=== PATIENT | male | born 1945 | race Caucasian/White ===

== ENCOUNTER 2016-10-05 12:33 | Inpatient (IN) | payer BC ==
--- NOTE | ~2016-10-05 | EGD ---
EGD REPORT [facility] [address] [place] [address] NAME: SYED DAUGHERTY : 41 STATUS : ADM IN PAT#: [id number] AGE: 71 ADM/REG DATE : 10/05/16 MR#: [id number] REPORT SERV DATE: 10/07/16 DICTATED BY: ANNIE RODARTE DATE: 10/07/16 REPORT STATUS : Draft TRANSCRIBED BY: [facility] DATE: 10/07/16 Endoscopy Center Patient Name: Syed Daugherty Date of : 1945 Attending MD: ANNIE RODARTE, Procedure Date No Time: 10/07/2016 Procedure: Upper GI endoscopy Indications: Acute post hemorrhagic anemia, Melena Referring MD: NAVEEN LARSEN, MIROSLAVA WELSH MD Medicines: Propofol per Anesthesia Complications: No immediate complications. Estimated blood loss: None. Procedure: Pre-Anesthesia Assessment: - ASA Grade Assessment: III - A patient with severe systemic disease. After obtaining informed consent, the endoscope was passed under direct vision. Throughout the procedure, the patient's blood pressure, pulse, and oxygen saturations were monitored continuously. The GIF [id number] was introduced through the mouth, and advanced to the second part of duodenum. The upper GI endoscopy was accomplished with ease. The patient tolerated the procedure well. Findings: The examined esophagus was normal. The Z-line was found 45 cm from the incisors. Scattered moderate inflammation characterized by erosions, erythema and linear erosions was found in the gastric body and in the gastric antrum. Biopsies were taken with a cold forceps for Helicobacter pylori testing. Estimated blood loss: none. Patchy moderately erythematous mucosa without active bleeding and with no stigmata of bleeding was found in the duodenal bulb. There was a small lipoma, 8 mm in diameter, in the second part of the duodenum. Impression: - Normal esophagus. - Z-line 45 cm from the incisors. - Gastritis. Biopsied. - Erythematous duodenopathy. - Duodenal lipoma. Recommendation: - [facility]. - Follow an antireflux regimen. - No aspirin, ibuprofen, naproxen, or other non-steroidal anti-inflammatory drugs. EGD REPORT [address] [place]. [address] NAME: SYED DAUGHERTY : [birth year] STATUS : ADM IN [facility]#: [id number] AGE: 71 ADM/REG DATE : 10/05/16 MR#: [id number] REPORT SERV DATE: 10/07/16 DICTATED BY: ANNIE RODARTE DATE: 10/07/16 REPORT STATUS : Draft TRANSCRIBED BY: [employer] DATE: 10/07/16 - Use Protonix (pantoprazole) 40 mg PO BID for 8 weeks. - Await pathology results. - Regular diet. - Return to GI clinic in 4 weeks. Procedure Code(s): --- Professional --- 37601, Esophagogastroduodenoscopy, flexible, transoral; with biopsy, single or multiple Diagnosis Code(s): --- Professional --- K29.70, Gastritis, unspecified, without bleeding K31.89, Other diseases of stomach and duodenum D17.5, Benign lipomatous neoplasm of intra-abdominal organs D62, Acute posthemorrhagic anemia K92.1, Melena CPT copyright 2013 [employer]. All rights reserved. The codes documented in this report are preliminary and upon fur dresser review may be revised to meet current compliance requirements. ANNIE RODARTE, 10/07/2016 5:18 PM This report has been signed electronically. Number of Addenda: 0 Note Initiated On: 10/07/2016 3:13 PM Scope Withdrawal Time 0 hours 0 minutes 0 seconds [address] [place] [id number]
--- NOTE | ~2016-10-05 | CN ---
Consultation Report [facility] [address] [facility] [place]. [address] NAME: EVGENY NAVARRO : 41 STATUS : ADM IN PAT#: [id number] AGE: 71 ADM/REG DATE : 10/05/16 MR#: [id number] REPORT SERV DATE: 10/05/16 DICTATED BY: JUDSON PENA DATE: 10/05/16 REPORT STATUS : Draft TRANSCRIBED BY: MODL DATE: 10/05/16 CONSULTATION NOTE DATE OF CONSULTATION: ATTENDING PHYSICIAN: Julio César Sparrow MD HISTORY OF PRESENT ILLNESS: This is a 71-year-old white male, I am seeing for Dr. Fabian Swartz, admitted with weakness, and found to have a history of atrial fibrillation, had been on Coumadin, INR was 8 on Friday, he held his Coumadin by history, and his INR today was 13, hemoglobin was 12.9, did have some dark stool, positive guaiac, history of hypertension, history of recent bronchitis URI, had been on antibiotics, he has had sinus and knee surgery. Denies abdominal pain, nausea, vomiting, has obstructive sleep apnea. History of increased alcohol and has had admissions for alcohol withdrawal in the past. His social history is positive for ETOH. Positive for former smoker. No nonsteroidals. States he has essential tremor. No past history of PUD. Some history of possible pulmonary emboli in the past. A CT last year when he was admitted for alcohol withdrawal showed fatty liver, gallstones, renal stones, and diverticular disease. White count 4700, and platelet count of 112,000. PHYSICAL EXAMINATION: GENERAL: Anxious, trembling, white male, alert. HEENT: Anicteric. NECK: Negative. CHEST: Few scattered rhonchi. HEART: Regular rhythm. ABDOMEN: Soft and nontender. Bowel sounds present. EXTREMITIES/NEUROLOGIC: Again, pertinent for recent tremor. ASSESSMENT: 1. Atrial fibrillation on Coumadin. INR at 8, now to 13. 2. Positive guaiac stools, some dark, hemoglobin of 12. 3. Recent upper respiratory infection and bronchitis on antibiotic. 4. Hypertension. 5. Obstructive sleep apnea. 6. Hepatitis A in the past. 7. Alcohol abuse with withdrawal in the past. Elevated LFTs on admission, slightly higher than baseline. 8. Gallstones. 9. Renal stones. 10.As mentioned fatty liver. 11.History of diverticulosis. SUGGESTION: Consultation Report [place] [address] [place]. [address] NAME: EVGENY NAVARRO : 41 STATUS : ADM IN PAT#: [id number] AGE: 71 ADM/REG DATE : 10/05/16 MR#: [id number] REPORT SERV DATE: 10/05/16 DICTATED BY: JUDSON PENA DATE: 10/05/16 REPORT STATUS : Draft TRANSCRIBED BY: MISSY DATE: 10/05/16 1. Correction of INR with fresh frozen plasma and vitamin K. 2. Begin Protonix. 3. Follow H and H. 4. Follow up LFTs. 5. May need EGD after correction of his ProTime. We will follow with you. FLORENCE/MISSY Judson Pena M.D. / [id number] CC: MD Colt Chen M.D. Henry Paik, M.D.
--- NOTE | ~2016-10-05 | DS ---
Discharge Summary [facility] [address] [facility] [place]. [address] NAME: EVGENY NAVARRO : 41 STATUS : DIS IN PAT#: [id number] AGE: 71 ADM/REG DATE : 10/05/16 MR#: [id number] REPORT SERV DATE: 10/09/16 DICTATED BY: MAURA BURNHAM DATE: 10/08/16 REPORT STATUS : Draft TRANSCRIBED BY: MODL DATE: 10/08/16 ADMISSION DATE: 10/05/2016 DISCHARGE DATE: 10/08/2016 HISTORY OF PRESENT ILLNESS: The patient is a 71-year-old male with a history of hypertension, atrial fibrillation, alcohol abuse, and essential tremors, who presented to the hospital due to concerns of his supratherapeutic INR and possible GI bleed. For further details, please refer to H and P dictated by Dr. Sparrow on 10/05/2016. HOSPITAL COURSE: I assumed care of the patient today, 10/08/2016. Briefly, the patient was instructed by peoplesoft programmer to present to the emergency room secondary to concerns of supratherapeutic INR. Upon presentation to the emergency room, the patient's history obtained was concerning for GI bleed. The patient's INR was also noted to be supratherapeutic at 13. The patient was admitted on the Hospitalist Service for further management. Supratherapeutic INR was corrected with FFP and vitamin K. Given concern given his history of dark stools, GI was consulted. He is status post EGD, which noted no significant findings. However, some gastritis was noted, which was biopsied. Also, there was a small lipoma 8 mm in diameter in the second part of the duodenum. Status post EGD, his hemoglobin has remained stable. The patient was also seen by Cardiology due to his atrial fibrillation, for which he was on warfarin for anticoagulation. Per Cardiology, the patient has been switched to Eliquis and warfarin at discharge. The patient has been evaluated by Cardiology today and is cleared for discharge from Cardiology standpoint. Given his hemodynamic stability and resolution of his presenting symptoms, the patient will be discharged today to follow up with primary care physician. Plan has been discussed with the patient, who voices understanding and is agreeable with this plan. DISCHARGE DIAGNOSES: 1. Upper gastrointestinal bleed. 2. Acute blood loss anemia. 3. Atrial fibrillation. 4. Hypertension. 5. ETOH abuse. 6. Essential tremors. 7. Obesity. 8. Hypertension. DISCHARGE EXAM: GENERAL: The patient was sitting in a chair. Appears stated age. The patient noted to have resting tremors. HEENT: Normocephalic, atraumatic. Extraocular motors intact. Moist oral mucosa. NECK: Trachea midline and symmetric. No JVD noted. No thyromegaly present. No lymphadenopathy appreciated. CHEST: Nontender to palpation. CARDIOVASCULAR: Irregularly irregular rate and rhythm. I did not appreciate any murmurs or gallops. LUNGS: Clear to auscultation bilaterally. ABDOMEN: Obese. Positive bowel sounds. Nontender. Nondistended. Discharge Summary [address] [place]. [address] NAME: EVGENY NAVARRO : 41 STATUS : DIS IN PAT#: [id number] AGE: 71 ADM/REG DATE : 10/05/16 MR#: [id number] REPORT SERV DATE: 10/09/16 DICTATED BY: MAURA BURNHAM DATE: 10/08/16 REPORT STATUS : Draft TRANSCRIBED BY: MISSY DATE: 10/08/16 EXTREMITIES: No cyanosis, no clubbing, no edema. NEURO: Alert and oriented x3. DISCHARGE MEDICATIONS: Medication reconciliation was performed by Cardiology. The patient will be discharged on vitamin B12 at 1000 mcg p.o. daily, diltiazem 360 mg p.o. daily, folic acid 1 mg p.o. daily, omeprazole 20 mg p.o. twice a day, artificial tears, lisinopril 20 mg p.o. daily, Valium 5 mg p.o. three times a day p.r.n. for anxiety, CONSULTANTS: On this admission, Dr. Pretty of GI and Dr. Galindo of Cardiology. PROCEDURES PERFORMED: The patient had an EGD performed while in-house. DISPOSITION: The patient will be discharged home to follow with Cardiology. ACTIVITY: As tolerated. DIET: Low-salt diet. Greater than 30 minutes was spent on chart review, coordinating discharge planning, medication reconciliation, and dictation of note. SONG Maura Burnham MD / [id number] CC: MD Colt Bello M.D.
--- NOTE | ~2016-10-05 | HP ---
History And Physical [place] [id number] [facility] [place]. [address] NAME: EVGENY NAVARRO : 41 STATUS : ADM IN [facility]#: [id number] AGE: 71 ADM/REG DATE : 10/05/16 MR#: [id number] REPORT SERV DATE: 10/05/16 DICTATED BY: SWETHA SPARROW DATE: 10/05/16 REPORT STATUS : Draft TRANSCRIBED BY: MODL DATE: 10/05/16 DATE OF ADMISSION: 10/05/2016 REASON FOR ADMISSION: Supratherapeutic INR concern for possible GI bleed. TABLE GAMES DEALER: Paolo Galindo M.D. CHIEF COMPLAINT: "I have not been feeling well, which he has been getting worse up until today when I tried to help my brother and I felt very weak and I could not get out of the car." HISTORY OF PRESENT ILLNESS: A 71-year-old white male with a history of atrial fibrillation, on Coumadin, followed by Dr. Galindo. Apparently, it is very difficult to control. He had an INR of 8 done on Friday. The patient checks his INR weekly and transmit that data to Dr. Galindo. He was told by Dr. Galindo's office to hold his Coumadin for the next couple of days and then recheck his INR again on Friday and reassess. He also has a known history of alcohol abuse in March 2016. He admitted to drinking vodka almost every 3 hours, although today he admits to only taking three wine glasses a day and with periodic vodka, maybe once a month. He says that he has been dealing with his essential tremors for long time. He has been on medications, which have not worked, but apparently alcohol has worked for his tremors. He does have a diagnosis of hepatitis C, diagnosed from hepatitis panel June 2016. He comes in today orthostatics complaining of weakness and not eating well and having some black diarrhea. He was found have an INR of 13 in emergency room, and he has completed 1 of 2 units ordered of FFP. He was also given a dose of vitamin K 5 mg IV. The patient is currently being interviewed by myself along with Dr. Pretty, who was at the bedside as well. The patient denies any history of having a scope, but does have had a laryngoscopy possibly by Dr. Newton, but patient is not entirely sure, who the ENT doctor is. Denies any vomiting, but also admits to some poor appetite. No hematemesis. In the ER, he was also found to have Hemoccult-positive stool. Hospice was asked to admit. REVIEW OF SYSTEMS: As per HPI. Otherwise, 10-point system reviewed and are negative. Of note, he was on recent Keflex for a possible upper respiratory infection. Otherwise, no other antibiotic use. PAST MEDICAL HISTORY: Atrial fibrillation on Coumadin, essential tremor, fatty liver disease, hepatitis A, hypertension, hyperlipidemia, morbid obesity, possible history of COPD, obstructive sleep apnea on CPAP. PAST SURGICAL HISTORY: He had left knee surgery and sinus surgery. SOCIAL HISTORY: He drinks alcohol. Denies any current smoking. He is . Has a son, who is living outside of the [facility]. He also has a brother. FAMILY HISTORY: Positive for tremors and liver disease. History And Physical [address] [address] NAME: EVGENY NAVARRO : 41 STATUS : ADM IN [facility]#: [id number] AGE: 71 ADM/REG DATE : 10/05/16 MR#: [id number] REPORT SERV DATE: 10/05/16 DICTATED BY: SWETHA SPARROW DATE: 10/05/16 REPORT STATUS : Draft TRANSCRIBED BY: MISSY DATE: 10/05/16 ALLERGIES: MIRTAZAPINE, UNKNOWN REACTION; PROPAFENONE CAUSES PASSING OUT; LEVAQUIN CAUSES DIZZINESS AND PASSING OUT; BRILINTA CAUSES NAUSEA, VOMITING. MEDICATIONS: Artificial tears; completed Keflex just yesterday; vitamin B12 of 1000 mcg daily; Valium 5 mg p.r.n. anxiety; diltiazem 360 mg daily; folic acid 1 mg daily; Zestril 20 mg daily; Prilosec 20 mg twice a day; Coumadin 2.5 mg Friday, Friday, Friday, and 5 mg Friday, Friday, , Friday. PHYSICAL EXAMINATION: VITAL SIGNS: Blood pressure lying down is 109/64, standing up is 84/37, pulse is 94 lying down, and then 121 sitting. Temperature is 98.2, respirations 20, sat 96% room air. GENERAL: He is in no acute distress. Alert and oriented x3. He is pleasant and cooperative clearly with bilateral hand tremors. HEENT: Normocephalic and atraumatic head. Extraocular muscles intact. Oropharynx is clear. Very poor dentition. CARDIAC: Irregularly irregular. No murmurs, rubs, or gallops. PULMONARY: Clear to auscultation bilaterally. ABDOMEN: Soft, nontender, nondistended. Positive bowel sounds. EXTREMITIES: Show no cyanosis. There is some ecchymosis throughout his skin. NEUROLOGIC: No focal deficits. PSYCHIATRIC: The patient is cooperative. Mood is appropriate. SKIN: Warm and dry. LABS: Show white blood cell count is normal, hemoglobin 12.4, platelet count of 112. BUN 12, creatinine is normal. Albumin 2.9, alkaline phosphatase is 140, ALT is 122, AST is 214, total bilirubin is 1.6. EKG shows AFib. IMPRESSION: 1. Supratherapeutic INR with a history of [id number] Coumadin likely secondary to liver disease along with alcohol abuse. 2. Orthostatic hypotension. 3. Hepatitis A. 4. Alcohol abuse. 5. Fatty liver disease with likely alcohol component. 6. Atrial fibrillation, on anticoagulation difficult to maintain. 7. History of nephrolithiasis and cholelithiasis. 8. Obstructive sleep apnea on CPAP. PLAN: Plan is to admit to the IMCU, transfused FFP and the patient already given vitamin K. We will repeat his coags later to see where he stands. He may need more FFP depending on his INR. We will initiate CIWA protocol for alcohol withdrawal for concern for possible alcohol withdrawal. Obtain stool studies. Administered IV fluids. Dr. Pretty has evaluated the patient in ER and will continue to follow with the potential scope on Friday depending on what his coags and hemoglobin do. History And Physical [address] [place]. [address] NAME: EVGENY NAVARRO : 41 STATUS : ADM IN [facility]#: [id number] AGE: 71 ADM/REG DATE : 10/05/16 MR#: [id number] REPORT SERV DATE: 10/05/16 DICTATED BY: SWETHA SPARROW DATE: 10/05/16 REPORT STATUS : Draft TRANSCRIBED BY: MISSY DATE: 10/05/16 ENRIQUE/MISSY Swetha Sparrow MD / [id number] CC: MD Colt Chen M.D. Alexander Stratienko, M.D.
[~2016-10-05 12:33] MED LIST: ASAB PO; C25 PO; C5 PO; CARD30 PO; CARDCD360 PO; COREG6 PO; FLURAZEPAM30 MG OR; FOLIC PO; KAOPECTATE262 MG/15 PO; LAN125 PO; LISINOPRIL40 MG; LISINOPRIL40 MG PO; MULTIPLE VIT PO; PLAVIX PO; PRILO PO; PRIN20 PO; REFRESH OPH; URO-MAG140 MG PO; V5 PO; VITAMIN B-121000 MC1 SL; WARFARIN PO; WAX OT
[2016-10-05 13:04] LABS: BASOPHILS 0 %; EOSINOPHILS 0.9 %; EOSINOPHILS ABSOLUTE 0.04 10/3/uL (0.0-0.53); ER CBC TAT 0 Hrs 08 Mins; HEMATOCRIT 37.2 % (40.0-51.0); HEMOGLOBIN 12.4 g/dL (13.6-17.8); IMMATURE GRANULOCYTES 0.2 %; IMMATURE GRANULOCYTES ABSOLUTE 0.01 10/3/uL (0.0-0.11); LYMPHOCYTES 16.6 %; LYMPHOCYTES ABSOLUTE 0.78 10/3/uL (0.67-4.30); MEAN CORPUS HGB CONC 33.3 g/dL (32.0-36.0); MEAN CORPUSCULAR HEMOGLOB 33.2 pg (26.0-34.0); MEAN CORPUSCULAR VOLUME 99.5 fL (80-100); MEAN PLATELET VOLUME 10.1 fL (9.2-13.0); MONOCYTES 4.1 %; MONOCYTES ABSOLUTE 0.19 10/3/uL (0.21-1.20); NEUTROPHILS 78.2 %; NEUTROPHILS ABSOLUTE 3.67 10/3/uL (2.02-8.40); PLATELET COUNT 112 10/3/uL (150-400); RBC DISTRIBUTION WIDTH 15.7 % (12.0-16.0); RED CELL COUNT 3.74 10/6/uL (4.7-6.1); WHITE BLOOD CELLS 4.7 10/3/uL (4.5-10.5)
[2016-10-05 13:06] LABS: MANUAL DIFF NO %
[2016-10-05 13:09] LABS: PARTIAL THROMBO TIME 57.6 SEC (22.5-37.2)
[2016-10-05 13:15] LABS: A/G RATIO 0.8 (0.7-1.9); ALBUMIN 2.9 G/DL (3.5-5.0); CALCIUM, SERUM 8.4 MG/DL (8.5-10.4); CHLORIDE, SERUM 103 MMOL/L (96-112); CO2 (CARBON DIOXIDE) 23 MMOL/L (24-34); CREATININE 0.91 MG/DL (0.70-1.30); GFR AFRICAN AMERICAN 97 ML/MIN (>=60); GFR NON AFRICAN AMERICAN 83 ML/MIN (>=60); GLOBULIN 3.8 G/DL (2.5-4.1); POTASSIUM, SERUM 4.3 MMOL/L (3.5-5.3); SGOT(AST) 214 U/L (5-40); SGPT(ALT) 122 U/L (5-65); SODIUM, SERUM 140 MMOL/L (135-148); TOTAL BILIRUBIN 1.6 MG/DL (0-1.2); TOTAL PROTEIN 6.7 G/DL (6.0-8.5)
[2016-10-05 13:17] LABS: ALKALINE PHOSPHATASE 140 U/L (45-117); BUN (BLOOD UREA NITROGEN) 12 MG/DL (6-23); GLUCOSE, SERUM 122 MG/DL (60-99)
[2016-10-05 13:19] LABS: INTERNATIONAL NORMAL RATI 13.9 UNITS (-); PROTIME (NOT ORD) 102.3 SEC (12.0-14.5)
[2016-10-05] MEDS ORDERED: TEARS PLUS OPH (13:32)
[2016-10-05] MEDS ORDERED: C5 PO (13:33)
[2016-10-05] MEDS ORDERED: FOLIC PO (13:33)
[2016-10-05] MEDS ORDERED: CYANO1000T PO (13:33)
[2016-10-05] MEDS ORDERED: C25 PO (13:33)
[2016-10-05] MEDS ORDERED: ZESTRIL20 MG PO (13:47)
[2016-10-05] MEDS ORDERED: PRILO PO (13:48)
[2016-10-05] MEDS ORDERED: CARDCD360 PO (13:48)
[2016-10-05] MEDS ORDERED: K500 PO (13:48)
[2016-10-05] MEDS ORDERED: V5 PO (13:48)
[2016-10-05 18:07] LABS: PARTIAL THROMBO TIME 51.3 SEC (22.5-37.2)
[2016-10-05 18:11] LABS: PROTIME (NOT ORD) 46.3 SEC (12.0-14.5)
[2016-10-05 18:18] LABS: FREE T4 1.22 NG/DL (0.76-1.46); PHOSPHORUS, SERUM 1.1 MG/DL (2.5-4.5)
[2016-10-05 18:19] LABS: ULTRASENSITIVE TSH 0.929 MCIU/ML (0.358-3.740)
[2016-10-05 20:12] LABS: INFLUENZA A SCREEN NEGATIVE (NEGATIVE); INFLUENZA B SCREEN NEGATIVE (NEGATIVE)
[2016-10-06 08:51] LABS: INTERNATIONAL NORMAL RATI 2.2 UNITS (-); PARTIAL THROMBO TIME 37.9 SEC (22.5-37.2)
[2016-10-06 08:58] LABS: CALCIUM, SERUM 7.9 MG/DL (8.5-10.4); CHLORIDE, SERUM 109 MMOL/L (96-112); CO2 (CARBON DIOXIDE) 23 MMOL/L (24-34); CREATININE 0.83 MG/DL (0.70-1.30); GFR AFRICAN AMERICAN 101 ML/MIN (>=60); GFR NON AFRICAN AMERICAN 87 ML/MIN (>=60); GLUCOSE, SERUM 129 MG/DL (60-99); POTASSIUM, SERUM 3.8 MMOL/L (3.5-5.3); SODIUM, SERUM 141 MMOL/L (135-148)
[2016-10-06 08:59] LABS: BUN (BLOOD UREA NITROGEN) 17 MG/DL (6-23); PHOSPHORUS, SERUM 1.8 MG/DL (2.5-4.5)
[2016-10-06 10:17] LABS: BASOPHILS 0 %; EOSINOPHILS 1.7 %; EOSINOPHILS ABSOLUTE 0.05 10/3/uL (0.0-0.53); IMMATURE GRANULOCYTES 0.7 %; IMMATURE GRANULOCYTES ABSOLUTE 0.02 10/3/uL (0.0-0.11); LYMPHOCYTES 19.9 %; MEAN CORPUS HGB CONC 33.6 g/dL (32.0-36.0); MEAN CORPUSCULAR HEMOGLOB 33.4 pg (26.0-34.0); MEAN CORPUSCULAR VOLUME 99.7 fL (80-100); MEAN PLATELET VOLUME 9.8 fL (9.2-13.0); MONOCYTES ABSOLUTE 0.18 10/3/uL (0.21-1.20); NEUTROPHILS 71.7 %; NEUTROPHILS ABSOLUTE 2.16 10/3/uL (2.02-8.40); RBC DISTRIBUTION WIDTH 15.3 % (12.0-16.0)
[2016-10-06 10:18] LABS: HEMATOCRIT 28.9 % (40.0-51.0); HEMOGLOBIN 9.7 g/dL (13.6-17.8)
[2016-10-06 10:20] LABS: MANUAL DIFF NO %; PLATELET COUNT 65 10/3/uL (150-400)
[2016-10-06 10:55] LABS: MACROCYTES 1+ (5-10/OIF) (0-5/OIF)
[2016-10-06 10:57] LABS: PLATELET ESTIMATE DEC (ADEQUATE)
[2016-10-06 21:19] LABS: HEMOGLOBIN 10.2 g/dL (13.6-17.8)
[2016-10-07 05:52] LABS: BASOPHILS 0 %; EOSINOPHILS 2.5 %; EOSINOPHILS ABSOLUTE 0.06 10/3/uL (0.0-0.53); HEMATOCRIT 31.4 % (40.0-51.0); HEMOGLOBIN 10.5 g/dL (13.6-17.8); IMMATURE GRANULOCYTES 0.4 %; IMMATURE GRANULOCYTES ABSOLUTE 0.01 10/3/uL (0.0-0.11); LYMPHOCYTES 28.7 %; LYMPHOCYTES ABSOLUTE 0.68 10/3/uL (0.67-4.30); MEAN CORPUS HGB CONC 33.4 g/dL (32.0-36.0); MEAN CORPUSCULAR HEMOGLOB 34.1 pg (26.0-34.0); MEAN CORPUSCULAR VOLUME 101.9 fL (80-100); MONOCYTES 5.9 %; MONOCYTES ABSOLUTE 0.14 10/3/uL (0.21-1.20); NEUTROPHILS 62.5 %; NEUTROPHILS ABSOLUTE 1.48 10/3/uL (2.02-8.40); PLATELET COUNT 68 10/3/uL (150-400); RBC DISTRIBUTION WIDTH 15.5 % (12.0-16.0); RED CELL COUNT 3.08 10/6/uL (4.7-6.1)
[2016-10-07 06:05] LABS: WHITE BLOOD CELLS 2.4 10/3/uL (4.5-10.5)
[2016-10-07 06:06] LABS: MANUAL DIFF NO %
[2016-10-07 06:09] LABS: A/G RATIO 0.8 (0.7-1.9); ALBUMIN 2.7 G/DL (3.5-5.0); ALKALINE PHOSPHATASE 97 U/L (45-117); BUN (BLOOD UREA NITROGEN) 10 MG/DL (6-23); CALCIUM, SERUM 8.2 MG/DL (8.5-10.4); CHLORIDE, SERUM 108 MMOL/L (96-112); CO2 (CARBON DIOXIDE) 24 MMOL/L (24-34); CREATININE 0.72 MG/DL (0.70-1.30); GFR AFRICAN AMERICAN 107 ML/MIN (>=60); GFR NON AFRICAN AMERICAN 93 ML/MIN (>=60); GLOBULIN 3.3 G/DL (2.5-4.1); GLUCOSE, SERUM 94 MG/DL (60-99); PHOSPHORUS, SERUM 2.6 MG/DL (2.5-4.5); POTASSIUM, SERUM 3.7 MMOL/L (3.5-5.3); SGOT(AST) 105 U/L (5-40); SGPT(ALT) 78 U/L (5-65); SODIUM, SERUM 142 MMOL/L (135-148)
[2016-10-07 06:12] LABS: INTERNATIONAL NORMAL RATI 1.6 UNITS (-); PARTIAL THROMBO TIME 34.1 SEC (22.5-37.2)
[2016-10-07 06:52] LABS: MACROCYTES 1+ (5-10/OIF) (0-5/OIF); PLATELET ESTIMATE DEC (ADEQUATE)
[2016-10-07 08:54] LABS: HEPATITIS B SURFACE ANTIGEN NON-REACTIVE (NON-REACT)
[2016-10-07 09:09] LABS: HEPATITIS C ANTIBODY NON-REACTIVE (NON-REACT)
[2016-10-07 09:10] LABS: HEPATITIS B CORE AB IGM NON-REACTIVE (NON-REAC)
[2016-10-07 09:11] LABS: HEP A ANTIBODY IGM NON-REACTIVE (NON-REACT)
[2016-10-07 14:33] LABS: HEMATOCRIT 29.9 % (40.0-51.0); HEMOGLOBIN 10.1 g/dL (13.6-17.8)
[2016-10-07 20:10] LABS: HEMOGLOBIN 10.3 g/dL (13.6-17.8)
[2016-10-08 06:07] LABS: INTERNATIONAL NORMAL RATI 1.5 UNITS (-); PARTIAL THROMBO TIME 30.4 SEC (22.5-37.2)
[2016-10-08 06:08] LABS: BASOPHILS 0 %; EOSINOPHILS 2.5 %; EOSINOPHILS ABSOLUTE 0.07 10/3/uL (0.0-0.53); HEMATOCRIT 30.9 % (40.0-51.0); HEMOGLOBIN 10.5 g/dL (13.6-17.8); IMMATURE GRANULOCYTES 0.4 %; IMMATURE GRANULOCYTES ABSOLUTE 0.01 10/3/uL (0.0-0.11); LYMPHOCYTES 23.9 %; LYMPHOCYTES ABSOLUTE 0.68 10/3/uL (0.67-4.30); MANUAL DIFF NO %; MEAN CORPUSCULAR HEMOGLOB 34.3 pg (26.0-34.0); MEAN PLATELET VOLUME 9.9 fL (9.2-13.0); MONOCYTES 5.6 %; MONOCYTES ABSOLUTE 0.16 10/3/uL (0.21-1.20); NEUTROPHILS 67.6 %; NEUTROPHILS ABSOLUTE 1.93 10/3/uL (2.02-8.40); PLATELET COUNT 73 10/3/uL (150-400); RBC DISTRIBUTION WIDTH 15.2 % (12.0-16.0); RED CELL COUNT 3.06 10/6/uL (4.7-6.1); WHITE BLOOD CELLS 2.9 10/3/uL (4.5-10.5)
[2016-10-08 06:21] LABS: A/G RATIO 0.8 (0.7-1.9); ALBUMIN 2.7 G/DL (3.5-5.0); ALKALINE PHOSPHATASE 95 U/L (45-117); BUN (BLOOD UREA NITROGEN) 8 MG/DL (6-23); CALCIUM, SERUM 8.5 MG/DL (8.5-10.4); CHLORIDE, SERUM 107 MMOL/L (96-112); CO2 (CARBON DIOXIDE) 23 MMOL/L (24-34); CREATININE 0.77 MG/DL (0.70-1.30); GFR AFRICAN AMERICAN 104 ML/MIN (>=60); GFR NON AFRICAN AMERICAN 90 ML/MIN (>=60); GLOBULIN 3.6 G/DL (2.5-4.1); GLUCOSE, SERUM 100 MG/DL (60-99); PHOSPHORUS, SERUM 2.5 MG/DL (2.5-4.5); POTASSIUM, SERUM 3.5 MMOL/L (3.5-5.3); SGOT(AST) 168 U/L (5-40); SGPT(ALT) 97 U/L (5-65); SODIUM, SERUM 141 MMOL/L (135-148); TOTAL BILIRUBIN 3.3 MG/DL (0-1.2); TOTAL PROTEIN 6.3 G/DL (6.0-8.5)
[2016-10-08 06:38] LABS: PLATELET ESTIMATE DEC (ADEQUATE)
[2016-10-08 06:39] LABS: POLYCHROMASIA 1+ (2-5/OIF) (0-1/OIF)
[2016-10-08] MEDS ORDERED: ELIQUIS 5 MG TAB5 MG PO (10:37)
[2017-02-13] MEDS ORDERED: CARDCD360 PO (20:28)
[2017-02-13] MEDS ORDERED: PRIN20 PO (20:28)
[2017-02-13] MEDS ORDERED: FOLIC PO (20:29)
[2017-02-13] MEDS ORDERED: CYANO1000T PO (20:29)
[2017-02-13] MEDS ORDERED: V5 PO (20:31)
[2017-02-13] MEDS ORDERED: COUMADIN3 MG PO (20:33)
[2017-02-13] MEDS ORDERED: SYSTAN1 TOP (20:34)
[2017-02-13] MEDS ORDERED: COUMADIN4 MG PO (20:46)
[2017-02-14] MEDS ORDERED: PROTONIX PO (14:25)
== END 2016-10-08 12:15 | disposition home or self-care (01) | DRG 378 ==
LOC: ER 12:33 → IMCU 14:46 → 2SO 10-07 21:58
PROVIDERS: Emergency Medicine; Internal Medicine; Internal Medicine Gastroenterology
PROC: 0DB68ZX Excision of Stomach, Via Natural or Artificial Opening Endoscopic, Diagnostic (ICD-10-PCS; principal; 2016-10-07 17:05)
DX: K92.2 Gastrointestinal hemorrhage, unspecified (principal); B15.9 Hepatitis A without hepatic coma; D68.69 Other thrombophilia; K70.30 Alcoholic cirrhosis of liver without ascites; D62 Acute posthemorrhagic anemia; Z99.81 Dependence on supplemental oxygen; I48.91 Unspecified atrial fibrillation; K92.1 Melena; I95.1 Orthostatic hypotension; G47.33 Obstructive sleep apnea (adult) (pediatric); K76.0 Fatty (change of) liver, not elsewhere classified; F10.20 Alcohol dependence, uncomplicated; E78.5 Hyperlipidemia, unspecified; J44.9 Chronic obstructive pulmonary disease, unspecified; K57.90 Diverticulosis of intestine, part unspecified, without perforation or abscess without bleeding; F41.9 Anxiety disorder, unspecified; K29.70 Gastritis, unspecified, without bleeding; K31.89 Other diseases of stomach and duodenum; D17.5 Benign lipomatous neoplasm of intra-abdominal organs; E66.9 Obesity, unspecified; Z88.1 Allergy status to other antibiotic agents; Z88.8 Allergy status to other drugs, medicaments and biological substances; Z68.34 Body mass index [BMI] 34.0-34.9, adult; Z87.442 Personal history of urinary calculi; Z86.711 Personal history of pulmonary embolism
CPT/HCPCS: 36415; 36430; 80048; 80053; 80074; 82272; 82728; 83540; 83550; 83605; 83735; 84100; 84439; 84443; 85014; 85018; 85025; 85610; 85730; 86850; 86900; 86901; 86920; 87045; 87046; 87046-59; 87328; 87329; 87493; 87493-59; 87641; 87804; 87899; 87899-59; 88305; 93005; 96374; 99291; A9270-GY; C9113; G0378; J2250; J3411; J3430; P9059